=== PATIENT | female | born 1990 | race Hispanic/Latino ===

== ENCOUNTER 2025-07-28 23:59 | Emergency (ER) | payer MEDICAID ==
[~2025-07-28] VITALS: Ht 167.6 cm; Wt 81.6 kg
[2025-07-29] VITALS: BP 133/66; PULSE 79; RESP 18; TEMP 97.5
--- NOTE | 2025-07-29 00:06 | NUR ---
UA CUP PROVIDED
--- NOTE | 2025-07-29 00:11 | ERN ---
ED Note History of Present Illness Stated Complaint: HEADACHE Chief Complaint: Headache Time Seen by MD: 00:01 Dictation: PATIENT IS A 35-YEAR-OLD FEMALE STATES SHE WAS HERE IN [place] WITH A FRIEND AND SHE STARTED HAVING A BILATERAL RETRO-ORBITAL AND OCCIPITAL HEADACHE. SHE DENIES FEVER CHILLS NAUSEA VOMITING. SHE DENIES ANY RECENT HEAD TRAUMA. STATES SHE HAS A HISTORY OF GASTRITIS AND TOOK SOME MYLANTA THINKING IT MAY HELP WITH THE HEADACHE ON-CALL. SHE STATES SHE HAS NOT TO ARRIVAL FOR PAIN OTHER THAN THE MYLANTA SHE IS ALERT AND ORIENTED X4 NIH IS 0 AND SHE IS AMBULATORY TO THE TRIAGE ROOM. Allergies: Coded Allergies: No Known Allergies (Unverified Allergy, Unknown, 07/29/25) Past Medical History Past Medical History: Other Additional Past Medical Hx: GASTRITIS Surgical History: None History: Not Applicable LMP: Jul 10, 2025 RN Note Reviewed/Agreed w/PFSH: Yes Review of System Dictation CONSTITUTIONAL: NEGATIVE EXCEPT FOR HPI HEAD/FACE: NEGATIVE EXCEPT FOR HPI EENT: NEGATIVE EXCEPT FOR HPI RESPIRATORY: NEGATIVE EXCEPT FOR HPI GASTROINTESTINAL/ABDOMINAL: NEGATIVE EXCEPT FOR HPI GENITOURINARY: NEGATIVE EXCEPT FOR HPI MUSCULOSKELETAL: NEGATIVE EXCEPT FOR HPI INTEGUMENTARY: NEGATIVE EXCEPT FOR HPI NEUROLOGICAL/PSYCH: NEGATIVE EXCEPT FOR HPI HEADACHE HEMATOLOGIC/LYMPHATIC: NEGATIVE EXCEPT FOR HPI ALL SYSTEMS NEGATIVE, EXCEPT NOTED ABOVE. 13 POINT REVIEW OF SYSTEMS ASSESSED AND ALL NEGATIVE EXCEPT FOR ABOVE. Initial Vital Sign VS Vital Signs Date Time Temp Pulse Resp B/P (MAP) Pulse Ox O2 Delivery O2 Flow Rate FiO2 07/29/25 00:00 97.5 79 18 133/66 99 Room Air Physical Exam Dictation VITAL SIGNS REVIEWED GENERAL APPEARANCE: ALERT, ORIENTED X 3, MILD ACUTE DISTRESS, WELL DEVELOPED, NOURISHED. HEAD AND FACE: NON-TRAUMATIC. EYES: PERRL, PINK CONJUNCTIVAS, EYELID NO TRAUMA, ANTERIOR CHAMBER WITH ARCUS SENILIS. EARS: PINNAS INTACT AND NO SIGNS OF TRAUMA OR ERYTHEMA EAR CANALS CLEAR AND NO DISCHARGE TM NO ERYTHEMA NOSE: NO DISCHARGE, NO BLEEDING. OROPHARYNX: MOUTH NORMAL, TONGUE PINK, PHARYNX CLEAR,NO ERYTHEMA, TONSILS NO EXUDATES, NO ABSCESSES NOTED, MUCOUS MEMBRANE MOIST NECK: SUPPLE, NON-TENDER, NO THYROMEGALY, NO MASSES, NO JVD, NO BRUITS BREAST:DEFERRED CHEST:NO TENDERNESS, NO CREPITUS, NO PARADOXICAL MOVEMENT, NO RETRACTIONS LUNGS:CLEAR, WELL-VENTILATED, SYMMETRIC, NO RALES, NO WHEEZING, NO RHONCHI, NO STRIDOR, GOOD BREATH SOUNDS BILATERALLY HEART: REGULAR RATE, REGULAR RHYTHM, NO MURMUR, NO GALLOPS VASCULAR: NO PERIPHERAL EDEMA, ABDOMEN: SOFT, POSITIVE BOWEL SOUNDS, NONDISTENDED, NO GUARDING, NONTENDER, NO REBOUND, NO MASSES NO HEPATOMEGALY, NO SPLENOMEGALY, NO GANDHI'S SIGN, NO HERNIAS. RECTAL: DEFERRED GENITAL: DEFERRED NEUROLOGICAL: NORMAL SPEECH, MOTOR FUNCTION INTACT, SENSORY FUNCTION INTACT NIH IS 0 MUSCULOSKELETAL: NECK NONTENDER, FULL RANGE OF MOTION, BACK NONTENDER, FULL RANGE OF MOTION, EXTREMITIES: NONTENDER, FULL RANGE OF MOTION SKIN: COLOR PINK, DRY, NO TURGOR, NO RASH, NO LACERATIONS, NO ABRASIONS, NO CONTUSIONS. LYMPHATIC: DEFERRED Results (Laboratory/Radiology) Labs Reviewed?: Yes ED Course ED Course Orders Procedure Category Date Status Time Acetaminophen 500mg PHA 07/29/25 In Process Tab (Tylenol 500mg T 00:30 Current Medications Medications (Trade) Dose Ordered Sig/Quin Route PRN Reason Start Time Stop Time Status Last Admin Dose Admin Acetaminophen (TYLenol 500MG TAB) 1,000 mg ONCE ONCE PO 07/29/25 00:30 07/29/25 00:31 Vital Signs Date Time Temp Pulse Resp B/P (MAP) Pulse Ox O2 Delivery O2 Flow Rate FiO2 07/29/25 00:00 97.5 79 18 133/66 99 Room Air 0025/NO LABS OR IMAGING INDICATED. PATIENT WILL BE DISCHARGED HOME WITH A TENSION HEADACHE TOLD TO SEE HER PRIMARY CARE DOCTOR TOMORROW FOR MANAGEMENT. Medical Decision Making MDM MEDICAL DISCHARGE MAKING BASED ON PHYSICAL EXAMINATION AND HPI. NIH IS 0 PATIENT IS TAKING NOTHING FOR PAIN AND WE WILL BE PRESCRIBED ACETAMINOPHEN REFERRED TO HER PRIMARY CARE DOCTOR TOMORROW WITH A DIAGNOSIS TENSION HEADACHE DX & DISP Disposition: Discharge Departure Impression: Primary Impression: Acute tension headache Condition: Stable Additional Instructions: FOLLOW-UP WITH PRIMARY CARE PROVIDER IN 1 TO 2 DAYS. TAKE MEDICATIONS DIRECTED HERE IN THE EMERGENCY ROOM. OKAY TO CONTINUE HOME MEDICATIONS UNLESS OTHERWISE DISCUSSED DURING YOUR VISIT IN THE EMERGENCY ROOM TODAY. RETURN TO YOUR NEAREST EMERGENCY ROOM IF SYMPTOMS WORSEN OR IF THERE IS NO IMPROVEMENT. CALL 911 IF YOU NEED IMMEDIATE ASSISTANCE. TAKE TYLENOL OR MOTRIN [id number] NEEDED AND IF NO CONTRAINDICATIONS ARE PRESENT. INCREASE ORAL HYDRATION. A WOUND CULTURE OR URINE CULTURE WAS ORDERED HERE IN THE EMERGENCY ROOM DEPARTMENT PLEASE FOLLOW-UP WITH PRIMARY CARE PROVIDER AND ADVISE THEM TO GET REPEAT PORTS FROM OUR FACILITY. IF YOU HAD ANY ESTHER WRAP/SPLINTS THAT WERE APPLIED HERE, PLEASE DO NOT REMOVE THEM UNTIL YOU SEE YOUR PRIMARY CARE OR SPECIALTY. TAKE TYLENOL [id number] NEEDED FOR PAIN. SEE YOUR PRIMARY CARE DOCTOR TOMORROW FOR MANAGEMENT Referrals: NONE (PCP) Time of Disposition: 00:27 I have reviewed the case, and I agree with, Diagnosis and Plan GILBERT ALFREDO Jul 29, 2025 00:11
--- NOTE | 2025-07-29 00:17 | NUR ---
PT CALLED, NO ANSWER, NOT IN LOBBY OR MAIN ER
--- NOTE | 2025-07-29 00:31 | NUR ---
PT CALLED, NO ANSWER
--- NOTE | 2025-07-29 00:33 | NUR ---
PT CALLED, NO ANSWER, NOT IN LOBBY
== END 2025-07-29 00:36 | disposition left against medical advice (07) ==
LOC: EDH 23:59
DX: G44.209 Tension-type headache, unspecified, not intractable (principal); Z87.19 Personal history of other diseases of the digestive system
CPT/HCPCS: 99282